=== PATIENT | female | born 1965 | race Caucasian/White ===

== ENCOUNTER → 2017-01-26 | Outpatient (CLI) | payer OTHER ==
[~2017-01-26] MED LIST: ACTOS PO; ACTOS30 MG PO; ALPRAZOLAM PO; ALPRAZOLAM0.5 MG PO; CLARITIN10 M3 PO; DEMEROL PO; FLEXERIL PO; GLUCOPHAGE500 MG PO; HCTZ PO; HYDROCHLOROTHIA25 MG PO; IBUPROFEN800 MG PO; LORTAB 7.5-3251 EACH PO; LORTAB 7.5-5001 TAB PO; LOTREL; LOTREL 5/10 MG1 CAP PO; METFORMIN HCL500 M1 PO; MUCINEX D ER T1 EACH PO; PROZAC PO; SINGULAIR PO; TEMAZEPAM PO; TOPAMAX; TOPAMAX PO; TRAMADOL HCL100 MG PO; XANAX0.5 MG PO; ZANAFLEX4 M1 PO; ZYRTEC PO; ZYRTEC10 M2 PO
--- NOTE | ~2017-01-26 | CR63 ---
[facility]. [facility] A Service of [facility] & [facility] RADIOLOGY TEXT RESULTS PATIENT: MORRO BANEGAS LOCATION: [facility] : 63 UNIT #: [id number] AGE: [address]: Quang Yoo MD SEX: F ORDER DR: [id number] [address] [address] [id number] O MR#: [id number] Acc #: [id number] NAME: MORRO BANEGAS : 1965 SEX: F STUDY DATE/TIME: 01/26/2017 14:30 UNIT: [facility] ROOM: STUDY DESCRIPTION: CR Chest 2 View Attending Physician: Quang Yoo M.D. Referring Physician: Quang Yoo M.D. Ordering Physician: Quang Yoo M.D. Primary Care Physician: Quang Yoo M.D. MEDICAL IMAGING REPORT This report is preliminary unless electronic signature is present. EXAM Chest PA and lateral 01/26/2017 HISTORY Cough and chest congestion for 2 weeks. Benign essential hypertension, fever. FINDINGS PA and lateral examination of the chest upright shows a good expansion of the parenchyma with a normal distribution of the pulmonary vascularity. There is no indication of congestion, effusion, infiltrate, tumor, or nodular density. The pleural reflections and diaphragmatic contours are normal. The cardiac silhouette and mediastinal anatomy is within normal limits. IMPRESSION Normal chest. Dictated by... Won Rhodes M.D. THIS IS AN ELECTRONICALLY VERIFIED REPORT Won Rhodes M.D. at 01/27/2017 7:29 AM PHUC/karen TD: 01/26/2017 19:02 JOB #: [id number] MEDICAL IMAGING REPORT Page 1 of 1
== END | disposition home or self-care (01) ==
LOC: SRAD 14:17
DX: R05 Cough (principal); R09.89 Other specified symptoms and signs involving the circulatory and respiratory systems
CPT/HCPCS: 71020

== ENCOUNTER → 2017-03-06 | Day surgery (SDC) | payer OTHER ==
--- NOTE | ~2017-03-06 | OR ---
Unit #: [id number] #: [id number] Patient: MORRO BANEGAS [id number] [address] [place], [place] [address] [id number] O MR#: [id number] NAME: MORRO BANEGAS ROOM: Date of Procedure: 03/06/2017 Admission Date: 03/06/2017 Surgeon: Vj Dorman Jr., M.D. : 1965 Attending Physician: Vj Dorman Jr., M.D. Primary Care Physician: Bari Kovacs M.D. OPERATIVE REPORT INDICATIONS FOR PROCEDURE The patient is a 51-year-old white female with known past history of colon polyps. She has been having intermittent left lower quadrant abdominal pain and it was felt since she has had no recent colonoscopy that she should have a repeat colonoscopy to rule out recurrent polyps and also determine the source of her left lower quadrant abdominal pain. She has had her prep at home. She is brought in at this time at her request for colonoscopy. She understands the procedure including the risks, including that of perforation and bleeding, and consents. PREOPERATIVE DIAGNOSIS Desires colonoscopy to rule out recurrent polyps. POSTOPERATIVE DIAGNOSIS Diverticulosis of the left colon without evidence of diverticulitis. No evidence of any polyps. Her colon was elongated and tortuous. ANESTHESIA MAC anesthesia. PROCEDURE PERFORMED Flexible colonoscopy to the distal ileum. DESCRIPTION OF PROCEDURE The patient was positioned in Sellers position with left side down. After being given MAC anesthesia, digital rectal examination was performed, which revealed no palpable mass or tenderness. No blood or stool in the rectal ampulla. The Olympus colonoscope was advanced through the anal canal up the rectum and retroflexed down to the area of the anorectal region. There was no evidence of any fissures. No significant internal hemorrhoids. The scope was then straightened and advanced up the rectosigmoid, in the sigmoid and descending colon areas, where there were few diverticula without evidence of diverticulitis. The scope was then advanced around the splenic flexure and the transverse colon, around the hepatic flexure and the ascending colon, down in the area of the cecum. The light from the tip of the scope could be seen transilluminating through right lower quadrant abdominal wall area. The scope was advanced up the distal ileum approximately 10 to 12 inches. There was no evidence of any ileitis or inflammatory bowel disease. The scope was slowly removed. There were no tumors, polyps, cancer, or AVMs. No evidence of any colitis or acute diverticulitis. The caliber of the colon appeared normal throughout except for noting an elongated, tortuous colon that Unit #: [id number] #: [id number] Patient: MORRO BANEGAS required multiple manipulations and diverticulosis of the left colon. There were no other specific abnormalities. The scope was removed. The patient tolerated the procedure well and discharged in satisfactory condition. Dictated by... Vj Dorman Jr., M.D. JMB/nusrat TD: 03/06/2017 20:28 JOB #: [id number] CC: Bari Kovacs M.D. OPERATIVE REPORT Page 1 of 1 X Vj Dorman MD X PROCEDURE OPERATIVE NOTE
== END | disposition home or self-care (01) ==
LOC: COPS 10:34
DX: K57.30 Diverticulosis of large intestine without perforation or abscess without bleeding (principal); K56.2 Volvulus; E11.9 Type 2 diabetes mellitus without complications; I10 Essential (primary) hypertension; F32.9 Major depressive disorder, single episode, unspecified; Z86.010 Personal history of colon polyps; Z86.14 Personal history of Methicillin resistant Staphylococcus aureus infection; Z87.442 Personal history of urinary calculi; Z87.09 Personal history of other diseases of the respiratory system; Z79.84 Long term (current) use of oral hypoglycemic drugs; Z79.891 Long term (current) use of opiate analgesic; Z79.899 Other long term (current) drug therapy; Z88.0 Allergy status to penicillin; Z88.2 Allergy status to sulfonamides; Z88.5 Allergy status to narcotic agent; Z88.6 Allergy status to analgesic agent; Z88.8 Allergy status to other drugs, medicaments and biological substances; Z98.890 Other specified postprocedural states; Z90.49 Acquired absence of other specified parts of digestive tract
CPT/HCPCS: 82947; J2250

== ENCOUNTER → 2017-06-17 | Outpatient (CLI) | payer OTHER ==
--- NOTE | ~2017-06-17 | EKG ---
PATIENT: MORRO BANEGAS UNIT #: [id number] Ventricular Rate: 70 BPM Atrial Rate: 70 BPM P-R Interval: 166 ms QRS Duration: 102 ms Q-T Interval: 416 ms QTC Calculation(Bezet): 449 ms P Imperial: 43 degrees Calculated R Imperial: 12 degrees Calculated T Imperial: 104 degrees Diagnosis Line: Normal sinus rhythm Diagnosis Line: T wave abnormality, consider anterolateral Diagnosis Line: ischemia Diagnosis Line: Abnormal ECG Diagnosis Line: When compared with ECG of 02-JUL-2015 15:50, Diagnosis Line: T wave inversion now evident in Lateral leads Diagnosis Line: Confirmed by GENNY JOHNSON MD ([id number]) on 06/17/2017 Diagnosis Line: 7:40:15 PM INTERPRETING MD: ELIZABETH SEARS
[2017-06-17 13:00] LABS: CALCIUM SERUM 9.3 mg/dL (8.4-10.2); GLOM FILT RATE Estimated 64.3 mL/min (>60); POTASSIUM 4.2 mmol/L (3.5-5.1)
== END | disposition home or self-care (01) ==
LOC: CAMB 10:47
PROVIDERS: Surgery
DX: Z01.818 Encounter for other preprocedural examination (principal)
CPT/HCPCS: 36415; 80048; 93005